=== PATIENT | male | born 1945 | race Caucasian/White ===

== ENCOUNTER → 2021-01-28 | Outpatient (CLI) | payer OTHER ==
[~2021-01-28] MED LIST: PROHANCE 279.3MG/ML 15ML VIAL As Ordered ONE
[2021-01-28 15:10] LABS: BLOOD UREA NITROGEN 18 MG/DL (7-18); CREATININE FOR GFR 0.76 MG/DL (0.70-1.30); GLOMERULAR FILTRATION RATE > 60.0 (>42)
--- NOTE | 2021-01-28 18:12 | REPVR ---
PROCEDURE INFORMATION: Exam: MR Head Without and With Contrast Exam date and time: 01/28/2021 4:33 PM Age: 75 years old Clinical indication: Altered mental status/memory loss; Confusion or disorientation; Additional info: Symptoms of stroke, TIA TECHNIQUE: Imaging protocol: MR of the head without and with intravenous contrast. Contrast material: PROHANCE; Contrast volume: 14 ml; Contrast route: INTRAVENOUS (IV); COMPARISON: No relevant prior studies available. FINDINGS: Brain: Large multifocal focus of abnormal diffusion in the inferior aspect of the right cerebellar hemisphere also visible on T1, T2 and FLAIR weighted images consistent with a subacute infarct. Foci of increased signal on T1 weighted images are demonstrated within the perimeter of the infarct suggesting hemorrhagic component. There is mild peripheral enhancement on post gadolinium imaging. Confluent foci of T2 lengthening are demonstrated in the periventricular white matter consistent with age-related small vessel gliosis. Mild to moderate age related parenchymal volume loss. There is [id number] diffuse cerebellar atrophy. Otherwise unremarkable. Cerebral ventricles: Normal. No ventriculomegaly. Bones/joints: Unremarkable. Paranasal sinuses: Inflammatory changes in both maxillary sinuses with retention cysts. Mastoid air cells: Normal as visualized. No mastoid effusion. Orbital cavity: Unremarkable. Soft tissues: Unremarkable. IMPRESSION: 1. 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 Findings likely early subacute based on MR appearance. Foci of hemorrhage and enhancement are demonstrated as described above. 2. Confluent foci of T2 lengthening are demonstrated in the periventricular white matter consistent with age-related small vessel gliosis. 3. Mild to moderate age related parenchymal volume loss. 4. There is [id number] diffuse cerebellar atrophy. Electronically signed by: Carl Ibarra On 01/28/2021 18:11:33 PM
== END ==
LOC: M RAD 13:24 → M LAB 13:24
PROVIDERS: ATTEND Internal Medicine
DX: I63.9 Cerebral infarction, unspecified (principal)
CPT/HCPCS: 36415; 70553; 82565; 84520; A9576

== ENCOUNTER → 2024-10-13 | Outpatient (REF) | LOC: M LABCFH 12:10 | DX: Z00.00 Encounter for general adult medical examination without abnormal findings (principal) ==